=== PATIENT | male | born 1985 | race Caucasian/White ===

== ENCOUNTER 2017-08-08 10:58 | Outpatient (CLI) | END 2017-08-08 10:59 | disposition short-term general hospital (02) | LOC: AMBL 10:58 | PROVIDERS: ATTEND Internal Medicine | DX: T75.4XXA Electrocution, initial encounter (principal); M54.9 Dorsalgia, unspecified; R20.0 Anesthesia of skin; W86.8XXA Exposure to other electric current, initial encounter; Y99.0 Civilian activity done for income or pay; W17.89XA Other fall from one level to another, initial encounter ==